=== PATIENT | male | born 1985 | race Caucasian/White ===

== ENCOUNTER 2017-04-12 11:03 | Emergency (ER) | payer MEDICAID ==
--- NOTE | 2017-04-13 16:11 | ER ---
ADMIT: 04/12/2017 RM/LOC: ER [facility] MR#: [id number] [id number] CHAUDHRYCHAIM ROSALESGONZALEZ [address] [place] [address] Emergency Room Report SEX: M AGE: 32 : 1985 DATE: 04/12/2017 The patient presents to the emergency room with epigastric pain. He said he had a couple of beers and then he stomach hurt. He has been doing that recently and he said that he has only been in the [place] for about eight months and when he was in [place] and he had this incidence, he would get an IV with the medication that took care of that. At this point, he denies any nausea or vomiting. No diarrhea. No fever. PAST MEDICAL HISTORY: Essentially negative. He did take Zantac. That did slightly help him. FAMILY HISTORY: Has heart disease. PHYSICAL EXAMINATION: VITAL SIGNS: Blood pressure 136/90, heart rate 68, respirations 18, temp is 98.4, O2 sats 98%. GENERAL: Not anxious at all. No acute distress. HEENT: Normal inspection. NECK: Supple. RESPIRATIONS: No distress. ABDOMEN: He points to the epigastrium for discomfort upon examination of right, and upper abdomen is nontender. Bowel sounds are normoactive. No right or lower left abdominal discomfort. No periumbilical pain. EXTREMITIES: Well perfused. NEURO: Oriented x4. SKIN: Good color and turgor. Given him GI cocktail and then Carafate. Advised him that if he hurts, why do it? He needs to back off the drinking alcohol until he feels better. Follow up with Dr. Gali Tovar. A prescription for Carafate daily given. Tried to make him more aware of his need to take care of himself rather than taking a pill to fix the problem that he himself brought up on. The patient verbalized understanding. Released home. CHRISTINA Miller / Walter Pereira MD / theresa JOB #: [id number] CC: Walter Pereira MD, Attending Physician Gali Tovar MD, Family Physician
== END 2017-04-12 12:05 | disposition home or self-care (01) ==
LOC: ER 11:03
DX: K29.20 Alcoholic gastritis without bleeding (principal); Z79.899 Other long term (current) drug therapy

== ENCOUNTER 2017-04-28 08:16 | Emergency (ER) | payer MEDICAID ==
--- NOTE | 2017-05-01 19:03 | ER ---
ADMIT: 04/28/2017 RM/LOC: ER [facility] MR#: [id number] [address] CHAUDHRY CONNIEGONZALEZ [address] [place] [address] Emergency Room Report SEX: M AGE: 32 : 1985 DATE: 04/28/2017 ADDENDUM: A 32-year-old male coming in with epigastric pain. Ultrasound shows gallstones. He was seen the other day for GERD, but his pain is from gallstone. No fever. No jaundice. We gave him 60 of Toradol IM. I am sending him home with [address] [place] [address] . We used an home sales service professional for explanation of a no-fat diet, as well as he needs to follow up surgeon electron gun assembler which would be Kira. CONDITION ON DISCHARGE: Fair. Walter Pereira MD/ theresa JOB #: [id number] CC: Walter Pereira MD, Attending Physician Ariel Malone MD, Family Physician
== END 2017-04-28 09:29 | disposition home or self-care (01) ==
LOC: ER 08:16
DX: K80.70 Calculus of gallbladder and bile duct without cholecystitis without obstruction (principal)